=== PATIENT | female | born 1935 | race Caucasian/White ===

== ENCOUNTER 2017-06-14 14:00 | Inpatient (IN) ==
[2017-06-14] MEDS ORDERED: ONDANSETRON 4 MG/2 ML VIAL IV STA (14:49)
[2017-06-14] MEDS ORDERED: HYDROmorphone 2 MG/1 ML VIAL IV STA ×2 (14:49→18:29)
--- NOTE | 2017-06-14 14:54 | Emergency Department Note ---
Arrival - Arrival Chief Complaint: Fall Stated Complaint: FALL ED Nursing Triage Note: PATIENT TO THE ROOM VIA EMS [facility] C/O FALL [facility]. PATIENT HAS LEFT HIP PAIN WITH ROTATION AT THE FOOT. Mode of Arrival: Stretcher Limitations: No Limitations Source: Patient Time Seen by Provider: 06/14/17 14:49 - History of Present Illness HPI Narrative: This 82-year-old white female presents with a fall sustained at the local [employer] store when she was trying to go up the steps and grabbed for a rail and missed falling backwards and landing on her left hip and bouncing her head off the concrete at the same time. She denies any loss of consciousness although it was quite uncomfortable at the time when her head hit the cement; however, her only other complaint is severe left hip pain. The patient is status post prior right hip fracture and states she knows this is what this is as she has experienced it before. Of note, she is followed by Dr. Pulliam for atrial fibrillation and only takes aspirin as an anticoagulant. Other than her hip, she is currently medically stable. Onset (ago): hour(s) (Patient presents 1 hour post incident) Allergies/Adverse Reactions: Allergies Allergy/AdvReac Type Severity Reaction Status Date / Time cefoxitin [From Mefoxin] Allergy RASH Verified 06/14/17 14:20 Home Medications: Home Medications Medication Instructions Recorded Confirmed Type Aspirin [Ecotrin] 81 mg PO DAILY 12/26/15 08/26/16 History Magnesium Chloride [Slow Mag] 64 mg PO BID 12/26/15 08/26/16 History Potassium 99 mg PO DAILY 12/26/15 08/26/16 History amLODIPine [Norvasc] 5 mg PO DAILY 12/26/15 08/26/16 History Acetaminophen Tab [Tylenol Tab] 325 mg PO BID tablet 12/27/15 08/26/16 Rx Gabapentin 1 tablet PO BID #60 capsule 12/27/15 08/26/16 Rx HYDROcodone/ACETAMIN 5-325 [[place] 1 tablet PO Q4H PRN #0 tablet 12/27/15 Rx 5-325] Escitalopram [Lexapro] 5 mg PO DAILY #30 tablet 08/29/16 Rx Levofloxacin Tab [Levaquin Tab] 500 mg PO DAILY #7 tablet 08/29/16 Rx Review of System - Review of System 12 point system: reviewed and no additional remarkable complaints except as stated - Review of System Constitutional: Present: as per HPI Musculoskeletal: Present: as per HPI Neurological: Present: as per HPI Medical,Surgical,& Family Hx - Medical History Cardio: History of: Cardiac Dysrhythmia (A-Fib), Hypertension Psychological: History of: Anxiety Disorders, Depression Respiratory: History of: Pneumonia Genitourinary: History of: Recurring Urinary Tract Infections Gastrointestinal: History of: GERD Musculoskeletal: History of: Back/Neck Problems (arthritis in neck) Other: No history of: Cancer - Surgical History Cardiac Surgeries: Sugical HX of: Cardiac Catheterization HEENT Surgeries: Surgical HX of: Eye Surgery (bilateral cataract surgery) Abdominal Surgeries: Surgical HX of: Appendectomy, Cholecystectomy Reproductive Surgeries: Surgical HX of;: Hysterectomy Orthopedic Surgeries: Surgical HX of;: Total Hip Replacement, Total Knee Replacement - Family History Family History: Reports;: Family Cancer (sister), Family Heart Disease (father) , Family Hypertension (father) - Social History Smoking Status: Never smoker Frequency of Alcohol Use: None Type of Drug Use: None Exam Physical Examination: GENERAL: Well developed, well nourished elderly white female in no acute distress. HEENT: Normocephalic. Small hematoma of the occipital area. Moist mucous membranes. EOMI. PERRLA. ENT NML NECK: Supple. No adenopathy. CARDIAC: Regular. No murmurs. Heart rate 98 CHEST: Clear to auscultation. No respiratory distress. O2 sat 97% ABDOMEN: Soft. Nontender. Active bowel sounds. EXTREMITIES: Shortened and externally rotated left lower extremity normal ROM. No pedal edema. SKIN: No diaphoresis. No rash. NEURO: Alert. Oriented 3. Motor, sensory, vibratory intact no focal deficits. Vital Signs: Vital Signs Temperature 98.4 F 06/14/17 14:10 Pulse Rate 98 H 06/14/17 14:10 Respiratory Rate 18 06/14/17 14:10 Blood Pressure 140/79 06/14/17 14:10 O2 Sat by Pulse Oximetry 98 06/14/17 15:30 Course - Reevaluation(s) Reevaluation #1: Advised patient of the need for hospitalization for surgical repair of her hip. - Consultations Consultation #1: Discussed with hospitalist service who will admit the patient for further evaluation treatment. Consultation #2: Discussed patient with Dr. Dionisio Ovalle who will admit the patient for surgical repair of the left hip. Results - Impressions EKG: Atrial fibrillation at 83 with moderate intraventricular conduction delay. Nonspecific ST changes with no acute injury pattern noted. - Diagnostic Findings Procedure: Chest x-ray: image reviewed by me, report reviewed by me (Normal chest), CT: image reviewed by me, report reviewed by me (Head: Microvascular ischemia and cerebral atrophy but no acute injury, CT cervical spine: Multilevel advanced DJD changes but no evidence of acute injury), X-ray: image reviewed by me, report reviewed by me (Left hip revealed a left femoral neck fracture) Disposition Clinical Impression: Left femoral neck fracture, Atrial fibrillation, Hypertension Case discussed with: patient Disposition: Still a Patient Condition: Guarded Time of Disposition: 15:48
[2017-06-14] MEDS ORDERED: HYDROmorphone 2 MG/1 ML VIAL ONE ×2 (15:14→18:42)
[2017-06-14] MEDS ORDERED: ONDANSETRON 4 MG/2 ML VIAL ONE ×2 (15:14→18:42)
--- NOTE | 2017-06-14 15:16 | CT Report ---
CT head/brain wo con INDICATION: Headache The total DLP is 1164 mGy*cm. COMPARISON: Noncontrast CT head dated 03/16/2010 Technique: Serial axial tomographic images of the brain were obtained without the use of intravenous contrast. Dose reduction: This CT exam was performed using one or more of the following dose reduction techniques: Automated exposure control, automated adjustment of the mA and/or KV according to patient size, or use of iterative reconstruction technique. Findings: Mild generalized atrophy is noted with mild prominence of the sulci and cortical volume loss. Periventricular white matter hypodensity changes are noted bilaterally which do not demonstrate mass effect and are nonspecific but favored to represent sequela of chronic microvascular ischemia. There is no evidence of vascular territory infarct or acute intracranial hemorrhage. The alvarado-white matter differentiation is generally maintained. There is no hydrocephalus. The basilar cisterns are patent. The visualized paranasal sinuses, mastoid air cells and middle ear cavities are predominantly clear. The included orbits and their contents appear within normal limits. The visualized osseous structures and overlying soft tissues of the skull and face demonstrate no acute abnormality. IMPRESSION: No acute intracranial abnormality. Generalized mild atrophy and sequela of chronic microvascular ischemia. PROCEDURE INTERPRETED AT [facility] DEPARTMENT OF RADIOLOGY Final Report Signed by: Froilan Sotelo
--- NOTE | 2017-06-14 15:27 | XRay Report ---
XR chest 1V portable Indication: Shortness of breath Comparison: Chest x-ray 08/27/2016 Technique: Portable AP chest was performed. Findings: Heart size is normal. Pulmonary vasculature appears within normal limits. No significant abnormality of the mediastinal contours demonstrated. Lungs are clear. Bones and soft tissues demonstrate no significant abnormalities. Surgical hardware along the lateral aspect of the proximal left humerus is stable. Impression: 1. No evidence of acute pathology. 06/14/2017 3:24 PM PROCEDURE INTERPRETED AT [facility] DEPARTMENT OF RADIOLOGY Final Report Signed by: Dr. Kimo Nam
--- NOTE | 2017-06-14 15:29 | CT Report ---
Exam: CT cervical spine without contrast Date: 06/14/2017 Comparison: None Reason: Neck pain, neck trauma, fall Technique: Axial images of the cervical spine were obtained without the use of contrast. Sagittal and coronal reformatted images were also acquired. Total DLP is 264.90 mGy*cm. Findings: 2.12 mm anterolisthesis of C4 in relationship to C5. Sclerosis with osteophytes. Small intraosseous pneumocysts noted especially at C6. No acute fracture or spinal cord pathology noted. Arterial calcifications with probable chronic scarring at the lung apices. At C2-C3, osteophyte/disc complex which contacts the thecal sac. No spinal stenosis with minimal bilateral foraminal stenosis. At C3-C4, osteophyte/disc complex which contacts the thecal sac. No spinal stenosis with minimal bilateral foraminal stenosis. At C4-C5, osteophyte/disc complex which contacts the thecal sac. No spinal stenosis with minimal bilateral foraminal stenosis. At C5-C6, disc space narrowing with diffuse osteophyte/disc complex which contacts the spinal cord. Associated spinal stenosis with an AP diameter of 8.91 mm with moderately severe right and moderate left foraminal stenosis. At C6-C7, disc space narrowing with diffuse osteophyte/disc complex which compresses the thecal sac. Associated spinal stenosis with an AP diameter of 9.50 mm and minimal to moderate bilateral foraminal stenosis. At C7-T1, no disc protrusion, spinal stenosis, or foraminal stenosis. Impression: 2.12 mm anterolisthesis of C4 in relationship to C5. This finding is probably related to the multilevel DDD as above noted. No definite acute fracture identified. This CT exam was performed using one or more of the following dose reduction techniques: Automatic exposure control, adjustment of the MA and/or KV according to patient size, or use of iterative reconstruction technique. PROCEDURE INTERPRETED AT [facility] DEPARTMENT OF RADIOLOGY Final Report Signed by: Dr. Vane Randall
--- NOTE | 2017-06-14 15:35 | XRay Report ---
Exam: XR hip 2v w pelvis LT Date: 06/14/2017 2:49 PM Comparison: 05/04/2011, 04/23/2011 Indication: Pain after fall Technique:[AP pelvis with AP and lateral left hip] Findings: Status post right total hip replacement. Osteopenia. Acute displaced fracture of the left femoral neck. There is upward displacement of the femoral shaft. Impression: Status post right total hip replacement. Acute displaced left femoral neck fracture with osteopenia and degenerative changes especially in the visualized lumbar spine. PROCEDURE INTERPRETED AT [facility] DEPARTMENT OF RADIOLOGY Final Report Signed by: Dr. Vane Randall
--- NOTE | 2017-06-14 15:47 | EKG Report ---
Stationary ECG Study [facility] ER Test Date: 06/14/2017 3:45:51 PM Pat Name: CHER MARROQUIN Department: Room: Gender: F Farmworker Fruit: : 1935 Requested by: Salvador Jones Order Number: [id number] Reading MD: MARIANA KING Intervals [place] Rate: 83 P: 999 NM: 0 QRS: 15 QRSD: 109 T: 100 QT: 410 QTc: 450 Interpretive Statements ATRIAL FIBRILLATION MODERATE INTRAVENTRICULAR CONDUCTION DELAY Electronically Signed On 06-14-17 19:31:25 CDT by MARIANA KING [email or web address]
[2017-06-14 16:00] LABS: Basophils % 0.6 % (0.0-0.8); Eosinophils # 0.2 10*3/uL (0.0-0.87); Eosinophils % 2.4 % (0.00-10.9); Hematocrit 38.2 VOL% (35.7-47.0); Immature Granulocytes % 0.6 %; Immature Granulocytes Absolute 0.04 #; Lymphocytes # 1.4 10*3/uL (1.4-4.0); Lymphocytes % 20.7 % (21.3-54.2); Mean Corpuscular Hemoglobin 31 PG (27-34); Mean Platelet Volume 9.6 FL (9.6-12.0); Monocytes # 0.5 10*3/uL (0.11-0.8); Neutrophils # 4.5 10*3/uL (1.4-7.4); Neutrophils % 68.7 % (38.7-73.9); Platelet Count 184 T/CUMM (130-400); Red Cell Distribution Width 12.7 % (9.3-17.3); White Blood Count 6.6 T/CUMM (4-12)
[2017-06-14 16:07] LABS: Apearance,Urine CLOUDY (Clear); Bacteria,Urine Few /HPF (Few); Bilirubin,Urine Negative (Negative); Blood, Urine Negative (Negative); Glucose,Urine (UA) Negative (Negative); Ketones,Urine 5 mg/dL (Negative); Mucus,Urine Occasional /LPF (Occasional); Nitrite,Urine Positive (Negative); Protein,Urine Negative; RBC,Urine 6 /HPF (0-4); Squamous Epithelial Cell,Urine Occasional /HPF (0-10); Urine Color Yellow (Yellow); Urine Specific Gravity 1.012 (1.001-1.035); Urine Urobilinogen < 2.0 EU/DL (0.2-1.0); WBC,Urine 8 /HPF (0-6)
[2017-06-14 16:11] LABS: INR 1.1; PT Patient Result 11.2 SECS; Partial Thromboplastin Time 26.4 SECS (0-40)
[2017-06-14 16:23] LABS: Albumin 3.7 G/DL (3.4-5.0); Bilirubin,Total 0.5 MG/DL (0.2-1.0); Osmolality,Calculated 284.8 MOS/KG (273-304); Potassium 3.5 MMOL/L (3.5-5.1); Total Protein 6.6 G/DL (6.4-8.3)
[2017-06-14] MEDS ORDERED: ACETAMINOPHEN 325 MG TABLET PO PRN (16:40)
[2017-06-14] MEDS ORDERED: LACTULOSE 20 GM/30 ML UDCUP PO PRN (16:40)
[2017-06-14] MEDS ORDERED: MORPHINE 2 MG/1 ML SYRINGE IV PRN ×2 (16:40→18:48)
[2017-06-14] MEDS ORDERED: ONDANSETRON 4 MG/2 ML VIAL IV PRN (16:40)
--- NOTE | 2017-06-14 16:50 | Hospitalist History & Physical ---
Assessment and Plan (1) Hip fracture Status: Acute Assessment and plan: 1)traumatic hip fracture from fall due to loss of balance- No syncope. Dr Nichole to see and repair hip fracture, probably surgery tomorrow. 2)afib- rate ok, and she tells me she does not take any meds for either rate control or anticoagulation other than aspirin. continue asa. check EKG in am. get monitor if her rate increases. 3)HTN- monitor. Restart meds if it goes up- meds not reconciled at the present time. 4)osteoporosis 5)pre op eval- she has no history of ischemic heart disease or any symptoms of chest pain or shortness of breath at rest or with activity. Her afib and HTN are stable conditions. I think she is at low risk for complications from this necessary surgery to restore her independent function. She sees Dr King. Current Visit: Yes (2) Osteoporosis Status: Acute Current Visit: Yes History of Present Illness Chief complaint: hip fracture History of present illness: Ms. Pate is a 82 year old female who fell at [facility] today when she lost her balance going up to the sidewalk. She has been treated for pain and is comfortable. She hit her head but denies headache. CT scan in the ER was unremarkable. She Home Medications Medication Instructions Recorded Confirmed Type Aspirin [Ecotrin] 81 mg PO DAILY 12/26/15 08/26/16 History Magnesium Chloride [Slow Mag] 64 mg PO BID 12/26/15 08/26/16 History Potassium 99 mg PO DAILY 12/26/15 08/26/16 History amLODIPine [Norvasc] 5 mg PO DAILY 12/26/15 08/26/16 History Acetaminophen Tab [Tylenol Tab] 325 mg PO BID tablet 12/27/15 08/26/16 Rx Gabapentin 1 tablet PO BID #60 capsule 12/27/15 08/26/16 Rx HYDROcodone/ACETAMIN 5-325 [[place] 1 tablet PO Q4H PRN #0 tablet 12/27/15 Rx 5-325] Escitalopram [Lexapro] 5 mg PO DAILY #30 tablet 08/29/16 Rx Levofloxacin Tab [Levaquin Tab] 500 mg PO DAILY #7 tablet 08/29/16 Rx Allergies Allergy/AdvReac Type Severity Reaction Status Date / Time cefoxitin [From Mefoxin] Allergy RASH Verified 06/14/17 14:20 Medical,Surgical,& Family Hx - Medical History Cardio: History of: Cardiac Dysrhythmia (A-Fib), Hypertension Psychological: History of: Anxiety Disorders, Depression Respiratory: History of: Pneumonia Genitourinary: History of: Recurring Urinary Tract Infections Gastrointestinal: History of: GERD Musculoskeletal: History of: Back/Neck Problems (arthritis in neck) Other: No history of: Cancer - Surgical History Cardiac Surgeries: Sugical HX of: Cardiac Catheterization HEENT Surgeries: Surgical HX of: Eye Surgery (bilateral cataract surgery) Abdominal Surgeries: Surgical HX of: Appendectomy, Cholecystectomy Reproductive Surgeries: Surgical HX of;: Hysterectomy Orthopedic Surgeries: Surgical HX of;: Total Hip Replacement, Total Knee Replacement - Family History Family History: Reports;: Family Cancer (sister), Family Heart Disease (father) , Family Hypertension (father) - Social History Smoking Status: Never smoker Frequency of Alcohol Use: None Type of Drug Use: None Lives With:: Alone Functional capacity: independent ambulation 12 point system: reviewed and no additional remarkable complaints except as stated Exam - Constitutional Vitals: Period Temp Pulse Resp BP Sys/Myers Pulse Ox Last 24 Hr 98.4 F-98.4 F 98-98 18-18 140-140/79-79 97-98 General appearance: normal weight, no acute distress - Head Head exam: Present: normocephalic, atraumatic - Eye Eye exam: Present: EOMI. Absent: scleral icterus - Respiratory Respiratory exam: Present: clear to auscultation bilaterally - Cardiovascular Cardiovascular exam: Present: regular rate and rhythm - GI/Abdominal GI/Abdominal exam: Present: normal bowel sounds, soft. Absent: tenderness - Extremities Exam Extremities exam: Absent: edema - Neurological Exam Neurological exam: Present: alert, oriented X3 - Skin Skin exam: Present: warm, dry Results - Labs CBC & BMP: 06/14/17 15:52 06/14/17 15:52 Lab Results: I have reviewed the past 24 hour labs Quality Measures - VTE Contraindication to Mechanical VTE Prophylaxis: Trauma to Legs
--- NOTE | 2017-06-14 18:46 | Orthopedic Consult Note ---
History of Present Illness Chief complaint: Left hip fracture History of present illness: Ms. Pate is a 82 year old female who fell while entering a local [employer] store today she lost her balance injuring her left hip. She was unable to bear weight brought [facility] where radiographs confirmed a fracture femoral neck left hip display she has a past history of a right femoral neck fracture treated in a number of years ago with an endoprosthesis which she has done very well she has no other complaints other than her left hip pain Examination confirms decreased range of motion at the left hip second obvious pain is shortening and external rotation to the limb there is no pain or crepitation more distally but the femur need to febrile ankle distal neurovascular exam grossly intact there is no pain about the right lower extremity either upper extremity with gentle range of motion. X-rays confirming a displaced femoral neck fracture left hip. Impression: Femoral neck fracture left hip Plan: I discussed with she and her family present the diagnosis treatment recommendations include the need for endoprosthetic replacement of her left hip similar to what she experienced years ago we discussed the postoperative course as well and all and expectations. All questions were answered she will be admitted tonight for pain control n.p.o. status and taken operating for endoprosthesis in a.m. thank you Home Medications Medication Instructions Recorded Confirmed Type Aspirin [Ecotrin] 81 mg PO DAILY 12/26/15 06/14/17 History Magnesium Chloride [Slow Mag] 64 mg PO BID 12/26/15 06/14/17 History Potassium 99 mg PO DAILY 12/26/15 06/14/17 History amLODIPine [Norvasc] 5 mg PO DAILY 12/26/15 06/14/17 History Gabapentin 1 tablet PO BID #60 capsule 12/27/15 06/14/17 Rx Escitalopram [Lexapro] 10 mg PO DAILY 06/14/17 06/14/17 History Allergies Allergy/AdvReac Type Severity Reaction Status Date / Time cefoxitin [From Mefoxin] Allergy RASH Verified 06/14/17 14:20 Medical,Surgical,& Family Hx - Medical History Cardio: History of: Cardiac Dysrhythmia (A-Fib), Hypertension Psychological: History of: Anxiety Disorders, Depression Respiratory: History of: Pneumonia Genitourinary: History of: Recurring Urinary Tract Infections Gastrointestinal: History of: GERD Musculoskeletal: History of: Back/Neck Problems (arthritis in neck) Other: No history of: Cancer - Surgical History Cardiac Surgeries: Sugical HX of: Cardiac Catheterization HEENT Surgeries: Surgical HX of: Eye Surgery (bilateral cataract surgery) Abdominal Surgeries: Surgical HX of: Appendectomy, Cholecystectomy Reproductive Surgeries: Surgical HX of;: Hysterectomy Orthopedic Surgeries: Surgical HX of;: Total Hip Replacement, Total Knee Replacement - Family History Family History: Reports;: Family Cancer (sister), Family Heart Disease (father) , Family Hypertension (father) - Social History Smoking Status: Never smoker Frequency of Alcohol Use: None Type of Drug Use: None Exam - Constitutional Vitals: Period Temp Pulse Resp BP Sys/Myers Pulse Ox Last 24 Hr 98.4 F-98.4 F 98-98 18-18 140-140/79-79 97-98 Results - Labs CBC & BMP: 06/14/17 15:52 06/14/17 15:52
[2017-06-14] MEDS: ENOXAPARIN 40 MG/0.4 ML SYRINGE SUBCUT SCH (19:55)
[2017-06-14] MEDS: SODIUM CHLORIDE 0.45% 1,000 ML IV SCH (20:25)
[2017-06-14] MEDS: PANTOPRAZOLE 40 MG TABLET PO SCH (20:37)
[2017-06-15] MEDS: diphenhydrAMINE CAP 25 MG CAPSULE PO PRN (00:15)
[2017-06-15] MEDS: CIPROFLOXACIN 500 MG TABLET PO SCH ×3 (00:18→21:12)
--- NOTE | 2017-06-15 07:22 | EKG Report ---
Stationary ECG Study [facility] Test Date: 06/15/2017 7:22:53 AM Pat Name: CHER MARROQUIN Department: Room: 324 Gender: F Steel Cutter: JON : 1935 Requested by: Vianey Cormier Order Number: [id number] Reading MD: TABBY MERRILL Intervals [place] Rate: 80 P: 999 [place]: 0 QRS: 56 QRSD: 110 T: -3 QT: 383 QTc: 419 Interpretive Statements ATRIAL FIBRILLATION MODERATE INTRAVENTRICULAR CONDUCTION DELAY NONSPECIFIC T-WAVE ABNORMALITY Electronically Signed On 06-15-17 07:51:10 CDT by TABBY MERRILL [email or web address]
[2017-06-15 07:23] LABS: Basophils % 0.3 % (0.0-0.8); Eosinophils # 0.2 10*3/uL (0.0-0.87); Eosinophils % 2.7 % (0.00-10.9); Hematocrit 37.6 VOL% (35.7-47.0); Hemoglobin 12.4 GM/DL (12.0-16.0); Immature Granulocytes % 0.5 %; Immature Granulocytes Absolute 0.03 #; Lymphocytes % 15.4 % (21.3-54.2); Mean Corpuscular Hemoglobin 31 PG (27-34); Mean Corpuscular Volume 93.5 FL (87-102); Mean Platelet Volume 9.9 FL (9.6-12.0); Monocytes # 0.6 10*3/uL (0.11-0.8); Monocytes % 8.6 % (1.7-12.7); Neutrophils # 4.8 10*3/uL (1.4-7.4); Neutrophils % 72.5 % (38.7-73.9); Platelet Count 169 T/CUMM (130-400); Red Blood Count 4.02 MC/CUMM (3.8-5.5); Red Cell Distribution Width 12.8 % (9.3-17.3); White Blood Count 6.6 T/CUMM (4-12)
[2017-06-15 07:48] LABS: Calcium 8.7 MG/DL (8.5-10.1); Osmolality,Calculated 278.4 MOS/KG (273-304); Potassium 3.5 MMOL/L (3.5-5.1)
[2017-06-15] MEDS ORDERED: CLINDAMYCIN INJ 900 MG in PREMIX 1 EACH IV ONE ×2 (09:00→10:30)
[2017-06-15] MEDS: HYDROmorphone 2 MG/1 ML VIAL IV PRN (09:03)
--- NOTE | 2017-06-15 10:13 | Orthopedic Progress Note ---
Orthopedics - Subjective Interval history: Comfortable discussed ready to proceed Exam - Constitutional Vitals: Period Temp Pulse Resp BP Sys/Myers Pulse Ox Last 24 Hr 96.9 F-99.4 F 72-98 16-18 103-140/56-79 90-98 Results - Labs CBC & BMP: 06/15/17 06:59 06/15/17 06:59 Quality Measures - VTE Contraindication to Mechanical VTE Prophylaxis: Trauma to Legs
[2017-06-15] MEDS ORDERED: diphenhydrAMINE 50 MG/1 ML VIAL ONE (11:17)
[2017-06-15] MEDS ORDERED: diphenhydrAMINE 50 MG/1 ML VIAL IV ONE (11:23)
[2017-06-15] MEDS ORDERED: TEMAZEPAM 7.5 MG CAPSULE PO PRN (12:58)
[2017-06-15] MEDS ORDERED: MAGNESIUM HYDROXIDE SUSP 30 ML UDCUP PO PRN (12:58)
[2017-06-15] MEDS ORDERED: BISACODYL 10 MG SUPP RECTAL PRN (12:58)
[2017-06-15] MEDS ORDERED: PROMETHAZINE 25 MG/1 ML VIAL IM PRN (12:58)
[2017-06-15] MEDS ORDERED: TRANEXAMIC ACID 1,000 MG/10 ML VIAL IV ONE (13:08)
--- NOTE | 2017-06-15 13:51 | Hospitalist Progress Note ---
Assessment and Plan (1) Hip fracture Status: Acute Assessment and plan: The patient is admitted to the hospital with left hip fracture and will have surgery today. No new complications have been identified. Current Visit: Yes Hospitalist: Subjective Interval history: The patient is having surgery today. The patient has left hip fracture has been seen by Dr. Nichole. The patient does not complain of shortness of breath or angina today. Exam - Constitutional Vitals: Period Temp Pulse Resp BP Sys/Myers Pulse Ox Last 24 Hr 96.9 F-99.4 F 72-98 16-18 103-140/56-79 90-98 Exam: Constitutional System: Mild distress. No tremulousness. Head: Normocephalic, atraumatic. Ears, Nose and Throat System: No evidence of Otitis or Mastoiditis. No epistaxis or discharge Eyes System: Pupils equal, round, and reactive. Extraocular muscles intact. Neck: Supple, without adenopathy, No jugular venous distention. No thyromegaly , neck mass, or prior surgery apparent. Respiratory System: Chest clear to auscultation. Cardiovascular System: Heart with irregular rate and rhythm. No murmur. GI System: Abdomen soft, nontender. Normo active bowel sounds present. Musculoskeletal System: limbs with no pedal edema. Full distal pulses. Neurological System: No discernable sensory deficit. No aphasia Psychiatric System: Conversation is rational Results - Labs CBC & BMP: 06/15/17 06:59 06/15/17 06:59 Lab Results: I have reviewed the past 24 hour labs Quality Measures - VTE Contraindication to Mechanical VTE Prophylaxis: Trauma to Legs
[2017-06-15] MEDS ORDERED: KETAMINE 500 MG/10 ML VIAL ONE (14:15)
[2017-06-15] MEDS ORDERED: MORPHINE 10 MG/10 ML VIAL ONE (14:15)
[2017-06-15] MEDS ORDERED: ACETAMINOPHEN 1,000 MG/100 ML VIAL IV ONE (14:24)
[2017-06-15] MEDS ORDERED: MIDAZOLAM 2 MG/2 ML VIAL ONE (14:24)
[2017-06-15] MEDS ORDERED: ONDANSETRON 4 MG/2 ML VIAL ONE (14:24)
[2017-06-15] MEDS ORDERED: PROPOFOL 200 MG/20 ML VIAL IV ONE (14:24)
--- NOTE | 2017-06-15 15:08 | XRay Report ---
XR hip 1V LT Indication: Joint replacement (left hip) Comparison: Pelvis/hip x-ray dated June 14, 2017 Technique: Single frontal view of the left hip Findings: Status post total left hip arthroplasty. No evidence of immediate hardware failure. Superficial skin brooks and surgical drain/s overlie the hip. Subcutaneous and joint space air noted which is likely postoperative. IMPRESSION: Status post total left hip arthroplasty. PROCEDURE INTERPRETED AT [facility] DEPARTMENT OF RADIOLOGY Final Report Signed by: Dr Kavin Campoverde
--- NOTE | 2017-06-15 15:58 | Orthopedic Progress Note ---
Orthopedics - Subjective Interval history: Comfortable neurovascular intact discussed up in a.m. Exam - Constitutional Vitals: Period Temp Pulse Resp BP Sys/Myers Pulse Ox Last 24 Hr 96.9 F-100.6 F 72-107 15-20 100-140/50-89 90-98 Results - Labs CBC & BMP: 06/15/17 06:59 06/15/17 06:59 Quality Measures - VTE Contraindication to Mechanical VTE Prophylaxis: Trauma to Legs
[2017-06-15] MEDS: CLINDAMYCIN INJ 900 MG in PREMIX 1 EACH IV SCH (17:56)
[2017-06-15] MEDS: PANTOPRAZOLE 40 MG TABLET PO SCH (17:57)
[2017-06-15] MEDS: ASPIRIN EC 81 MG TABLET PO SCH (17:57)
[2017-06-15] MEDS: ENOXAPARIN 40 MG/0.4 ML SYRINGE SUBCUT SCH (17:57)
[2017-06-15] MEDS: SODIUM CHLORIDE 0.45% 1,000 ML IV SCH ×2 (20:26→20:27)
[2017-06-15] MEDS: LACTATED RINGERS 1,000 ML IV SCH ×2 (20:26→21:52)
[2017-06-15] MEDS: DOCUSATE SODIUM 100 MG CAPSULE PO SCH (21:12)
--- NOTE | 2017-06-15 22:42 | Operative Note ---
DATE: 06/15/2017 PREOPERATIVE DIAGNOSIS: FEMORAL NECK FRACTURE, LEFT HIP. POSTOPERATIVE DIAGNOSIS: FEMORAL NECK FRACTURE, LEFT HIP. OPERATIVE PROCEDURE: Bipolar, left hip. SURGEON: Arron Nichole Jr., MD. ANESTHESIA: Spinal. INDICATIONS: The patient is an 82-year-old white female who fell yesterday afternoon sustaining a di splaced femoral neck fracture to her left hip. This has been discussed with she and her family preop eratively diagnosis, treatment, recommendations including the need for endo-prosthetic replacement. OPERATIVE PROCEDURE: The patient was taken to the operating room and under spinal anesthetic, positi oned in the right lateral decubitus position. Left hip and lower extremity prepped and draped in the usual sterile manner. She received Ancef preoperatively. Curvilinear incision was made to posterol ateral aspect of the left hip. Sharp dissection was carried down through skin and subcutaneous tissu e. The IT band was split and the hip was then internally rotated, and the short rotators and capsule were dissected off the back of the proximal femur. The capsule was tacked for later repair. Femora l neck cut was fashioned with a saw, the head removed and sized to 47. Sequential broachings of the canal ultimately slacking size 3 standard stem for the safer cementation. A +5 head was also selecte d. The trial components were removed. The proximal femur was prepared for cementation and the femor al stem cemented in place. After the cement hardened, the +5 and bipolar head were secured to the ta per and hip relocated. It provided good stability and equalization of limb length. Hemostasis was v erified. The wound was then irrigated, two 1/8-inch Hemovac drains, and the capsule closed with #1 V icryl. The IT band and gluteal layer also with #1 Vicryl, 2-0 Vicryl for subcutaneous layer, and sta ples for skin. Sterile dressings were applied. She was rolled supine, abduction pillow placed, and taken to recovery room in stable condition.
[2017-06-16] MEDS: CLINDAMYCIN INJ 900 MG in PREMIX 1 EACH IV SCH (02:42)
[2017-06-16] MEDS: LACTATED RINGERS 1,000 ML IV SCH (04:28)
[2017-06-16] MEDS: HYDROmorphone 2 MG/1 ML VIAL IV PRN (04:38)
[2017-06-16 05:32] LABS: Basophils % 0.2 % (0.0-0.8); Eosinophils # 0.2 10*3/uL (0.0-0.87); Eosinophils % 3.9 % (0.00-10.9); Hematocrit 33.2 VOL% (35.7-47.0); Hemoglobin 11.4 GM/DL (12.0-16.0); Immature Granulocytes % 0.4 %; Immature Granulocytes Absolute 0.02 #; Lymphocytes # 0.8 10*3/uL (1.4-4.0); Lymphocytes % 14.5 % (21.3-54.2); Mean Corpuscular HGB Conc 34.3 GM/DL (32-36); Mean Corpuscular Hemoglobin 32 PG (27-34); Mean Corpuscular Volume 91.7 FL (87-102); Mean Platelet Volume 10.3 FL (9.6-12.0); Monocytes # 0.6 10*3/uL (0.11-0.8); Monocytes % 11.7 % (1.7-12.7); Neutrophils # 3.7 10*3/uL (1.4-7.4); Neutrophils % 69.3 % (38.7-73.9); Platelet Count 114 T/CUMM (130-400); Red Blood Count 3.62 MC/CUMM (3.8-5.5); Red Cell Distribution Width 12.6 % (9.3-17.3); White Blood Count 5.4 T/CUMM (4-12)
[2017-06-16 06:00] LABS: Calcium 7.9 MG/DL (8.5-10.1); Osmolality,Calculated 279.4 MOS/KG (273-304); Potassium 3.4 MMOL/L (3.5-5.1)
--- NOTE | 2017-06-16 08:30 | Orthopedic Progress Note ---
Orthopedics - Subjective Interval history: Hemoglobin 11 ready to start PT neurovascular intact discussed will need rehab placement. Stop IV fluids catheters out. Exam - Constitutional Vitals: Period Temp Pulse Resp BP Sys/Myers Pulse Ox Last 24 Hr 98.2 F-100.6 F 87-107 15-20 92-120/50-89 87-99 Results - Labs CBC & BMP: 06/16/17 04:54 06/16/17 04:54 Quality Measures - VTE Contraindication to Mechanical VTE Prophylaxis: Trauma to Legs
--- NOTE | 2017-06-16 09:17 | Hospitalist Progress Note ---
Assessment and Plan (1) Hip fracture Status: Acute Assessment and plan: The patient is admitted to the hospital with left hip fracture and had surgery yesterday. No new complications have been identified. Current Visit: Yes Hospitalist: Subjective Interval history: The patient is awake, optimistic, and talkative. She has some pain in the hip but hopes to make progress with physical therapy today. Dr. Nichole wants her to go to [facility] at the time of discharge. Exam - Constitutional Vitals: Period Temp Pulse Resp BP Sys/Myers Pulse Ox Last 24 Hr 98.2 F-100.6 F 87-107 15-20 92-120/50-89 87-99 Exam: Constitutional System: Mild distress. No tremulousness. Head: Normocephalic, atraumatic. Ears, Nose and Throat System: No evidence of Otitis or Mastoiditis. No epistaxis or discharge Eyes System: Pupils equal, round, and reactive. Extraocular muscles intact. Neck: Supple, without adenopathy, No jugular venous distention. No thyromegaly , neck mass, or prior surgery apparent. Respiratory System: Chest clear to auscultation. Cardiovascular System: Heart with irregular rate and rhythm. No murmur. GI System: Abdomen soft, nontender. Normo active bowel sounds present. Musculoskeletal System: limbs with no pedal edema. Full distal pulses. Neurological System: No discernable sensory deficit. No aphasia Psychiatric System: Conversation is rational Results - Labs CBC & BMP: 06/16/17 04:54 06/16/17 04:54 Lab Results: I have reviewed the past 24 hour labs Quality Measures - VTE Contraindication to Mechanical VTE Prophylaxis: Trauma to Legs
[2017-06-16] MEDS: SODIUM CHLORIDE 0.45% 1,000 ML IV SCH (09:39)
[2017-06-16] MEDS: PANTOPRAZOLE 40 MG TABLET PO SCH (09:46)
[2017-06-16] MEDS: DOCUSATE SODIUM 100 MG CAPSULE PO SCH ×2 (09:46→20:22)
[2017-06-16] MEDS: ASPIRIN EC 81 MG TABLET PO SCH (09:46)
[2017-06-16] MEDS: CIPROFLOXACIN 500 MG TABLET PO SCH ×2 (09:46→20:22)
--- NOTE | 2017-06-16 14:20 | Anesthesia Post-Op ---
Anesthesia Post OP - Post Ansesthetic Evaluation Patient seen in post op: Yes Resp: within normal limits CV: within normal limits Mental: within normal limits Temp: within normal limits [id number]: within normal limits Nausea and Vomiting: within normal limits Pain: within normal limits
[2017-06-16] MEDS: ENOXAPARIN 40 MG/0.4 ML SYRINGE SUBCUT SCH (18:26)
[2017-06-16] MEDS: diphenhydrAMINE CAP 25 MG CAPSULE PO PRN (22:53)
[2017-06-17 05:42] LABS: Basophils % 0.4 % (0.0-0.8); Eosinophils # 0.3 10*3/uL (0.0-0.87); Eosinophils % 3.1 % (0.00-10.9); Hematocrit 33.8 VOL% (35.7-47.0); Hemoglobin 11.6 GM/DL (12.0-16.0); Immature Granulocytes % 0.4 %; Immature Granulocytes Absolute 0.03 #; Lymphocytes # 1.2 10*3/uL (1.4-4.0); Lymphocytes % 14.8 % (21.3-54.2); Mean Corpuscular HGB Conc 34.3 GM/DL (32-36); Mean Corpuscular Hemoglobin 32 PG (27-34); Mean Corpuscular Volume 92.1 FL (87-102); Mean Platelet Volume 10.3 FL (9.6-12.0); Monocytes # 0.9 10*3/uL (0.11-0.8); Monocytes % 11.5 % (1.7-12.7); Neutrophils # 5.6 10*3/uL (1.4-7.4); Neutrophils % 69.8 % (38.7-73.9); Platelet Count 124 T/CUMM (130-400); Red Blood Count 3.67 MC/CUMM (3.8-5.5); Red Cell Distribution Width 12.7 % (9.3-17.3)
[2017-06-17 06:20] LABS: Eosinophils 1 % (0-10); Hypochromasia Slight; Lymphocytes 20 % (20-55); Platelet Estimate Decreased; Segmented Neutrophils 74 % (50-85); Total Cells Counted 100
[2017-06-17] MEDS: CIPROFLOXACIN 500 MG TABLET PO SCH ×2 (09:17→20:38)
[2017-06-17] MEDS: DOCUSATE SODIUM 100 MG CAPSULE PO SCH ×2 (09:17→20:38)
[2017-06-17] MEDS: PANTOPRAZOLE 40 MG TABLET PO SCH (09:18)
[2017-06-17] MEDS: ASPIRIN EC 81 MG TABLET PO SCH (09:18)
--- NOTE | 2017-06-17 09:58 | Orthopedic Progress Note ---
Orthopedics - Subjective Interval history: Comfortable mild serous drainage on dressing H&H stable instructed likely to rehab tomorrow Exam - Constitutional Vitals: Period Temp Pulse Resp BP Sys/Myers Pulse Ox Last 24 Hr 97.3 F-100.3 F 85-102 16-20 123-145/63-73 90-100 Results - Labs CBC & BMP: 06/17/17 04:16 06/16/17 04:54 Quality Measures - VTE Contraindication to Mechanical VTE Prophylaxis: Trauma to Legs
--- NOTE | 2017-06-17 11:18 | Pathology Report from [facility] ---
[facility] ACCESSION # : [id number] PATIENT NAME : Cher Marroquin ORDERING DR : CAROLINA CALDERON JR, MD CLINICAL HX: Displaced femoral neck fracture left hip POST-OP DX: Same SPECIMEN INFO: Left hip bone and tissue GROSS DESCRIPTION: The specimen is received in formalin labeled with the patients name and consists of a fractured femoral head which measures 4.5 x 4.5 x 3.5 cm. The articular surface is smooth and skelton with no subchondral eburnation seen. Received separately in the container are multiple fragments of hemorrhagic bone and soft tissue measuring 5.5 x 4.0 cm in aggregate. The area of fracture is shaggy and hemorrhagic with no softening appreciated. Rn Dermatology tissue submitted in one cassette following decalcification. DIAGNOSIS FOR CHER MARROQUIN: LEFT HIP BONE & TISSUE, REPLACEMENT: Acute hemorrhage c/w fracture. COLLECTED DATE: 06/15/2017 [facility] REPORT DATE: 06/17/2017 ELECTRONICALLY SIGNED BY: Mil De La Fuente M.D. 06/17/2017 - 10:13:08 ALVAREZ
--- NOTE | 2017-06-17 14:07 | Hospitalist Progress Note ---
Assessment and Plan (1) Hip fracture Status: Acute Assessment and plan: The patient is admitted to the hospital with left hip fracture and had surgery Wednesday. No new complications have been identified. The patient will be ready for transfer to rehab tomorrow. Current Visit: Yes Hospitalist: Subjective Interval history: The patient is admitted to the hospital with left hip fracture. She has had an uneventful postoperative recovery and there are no new symptoms today. Exam - Constitutional Vitals: Period Temp Pulse Resp BP Sys/Myers Pulse Ox Last 24 Hr 97.3 F-98.9 F 85-109 16-20 106-128/63-73 90-98 Exam: Constitutional System: Mild distress. No tremulousness. Head: Normocephalic, atraumatic. Ears, Nose and Throat System: No evidence of Otitis or Mastoiditis. No epistaxis or discharge Eyes System: Pupils equal, round, and reactive. Extraocular muscles intact. Neck: Supple, without adenopathy, No jugular venous distention. No thyromegaly , neck mass, or prior surgery apparent. Respiratory System: Chest clear to auscultation. Cardiovascular System: Heart with irregular rate and rhythm. No murmur. GI System: Abdomen soft, nontender. Normo active bowel sounds present. Musculoskeletal System: limbs with no pedal edema. Full distal pulses. Neurological System: No discernable sensory deficit. No aphasia Psychiatric System: Conversation is rational Results - Labs CBC & BMP: 06/17/17 04:16 06/16/17 04:54 Lab Results: I have reviewed the past 24 hour labs Quality Measures - VTE Contraindication to Mechanical VTE Prophylaxis: Trauma to Legs Specialty Discharge - Follow Up or Referrals Follow up with: Arron Nichole Jr., MD [Physician] - 07/20/17 8:00 am
[2017-06-17] MEDS: ENOXAPARIN 40 MG/0.4 ML SYRINGE SUBCUT SCH (17:36)
[2017-06-18 05:42] LABS: Calcium 8.2 MG/DL (8.5-10.1); Osmolality,Calculated 279.3 MOS/KG (273-304); Potassium 3.3 MMOL/L (3.5-5.1)
--- NOTE | 2017-06-18 07:48 | Orthopedic Progress Note ---
Orthopedics - Subjective Interval history: No problems tolerating PT well ready for discharge Exam - Constitutional Vitals: Period Temp Pulse Resp BP Sys/Myers Pulse Ox Last 24 Hr 97.7 F-100.8 F 64-109 16-18 106-143/66-93 92-98 Results - Labs CBC & BMP: 06/17/17 04:16 06/18/17 04:20 Quality Measures - VTE Contraindication to Mechanical VTE Prophylaxis: Trauma to Legs Specialty Discharge - Follow Up or Referrals Follow up with: Arron Nichole Jr., MD [Physician] - 07/20/17 8:00 am
--- NOTE | 2017-06-18 08:38 | Discharge Summary ---
Hospital Course - Hospital Course Hospital Course: The patient was admitted to the hospital with left hip fracture. The patient had appropriate open reduction internal fixation of the left hip by Dr. Nichole. The patient had an uneventful postoperative recovery and is ready for transfer to [facility] rehab. On the date of discharge, chest clear, heart has regular rate and rhythm, abdomen soft. The patient was screened for tobacco use and was found to be a never smoker. The patient was given 4 minutes encouragement to avoid smoking in the future. The patient is her own medical decision maker and wishes to be full code. The patient's home medicines were reconciled at the time of admission and again upon discharge. - Time spent with patient Time with patient DS: Greater than 30 minutes Diagnosis - Discharge Diagnosis (1) Hip fracture Status: Acute Specialty Discharge - Follow Up or Referrals Follow up with: Arron Nichole Jr., MD [Physician] - 07/20/17 8:00 am Discharge Plan - Discharge Data Disposition: Disch/er- Rehab Fac Condition at Discharge: Stable Discharge Diet: advance to your usual diet Activity: as per physical therapy - Discharge Medications New Bisacodyl Supp [Dulcolax Supp] 10 mg RECTAL DAILY PRN supp PRN Reason: Constipation Enoxaparin [Lovenox] 40 mg SUBCUT Q24H syringe HYDROcodone/ACETAMIN 7.5-325 [[place] 7.5-325] 1 tablet PO Q4H PRN #30 tablet PRN Reason: Pain Moderate (4-7) Lactulose Liquid [Chronulac] 20 gm PO Q4H PRN PRN Reason: Constipation Magnesium Hydroxide Susp [Milk of Magnesia] 30 ml PO Q6H PRN PRN Reason: Constipation Acetaminophen Tab [Tylenol Tab] 650 mg PO Q4H PRN tablet PRN Reason: Fever, Headache, Mild Pain Ciprofloxacin Tab [Cipro Tab] 500 mg PO BID #10 tablet Ondansetron Inj [Zofran Inj] 4 mg IV Q4H PRN vial PRN Reason: Nausea Continue Potassium 99 mg PO DAILY Magnesium Chloride [Slow Mag] 64 mg PO BID amLODIPine [Norvasc] 5 mg PO DAILY Aspirin [Ecotrin] 81 mg PO DAILY Gabapentin 1 tablet PO BID #60 capsule Escitalopram [Lexapro] 10 mg PO DAILY - Follow Up or Referral Follow Up: Arron Nichole Jr., MD [Physician] - 07/20/17 8:00 am - Forms/Instructions Exam - Constitutional Vitals: Period Temp Pulse Resp BP Sys/Myers Pulse Ox Last 24 Hr 97.7 F-100.8 F 64-109 16-18 106-160/66-93 92-98 Discharge Results Labs on day of discharge: Labs from last 24 hours 06/18/17 04:20 Sodium 141 Potassium 3.3 L Chloride 104 Carbon Dioxide 31 Anion Gap 9.3 BUN 10 Creatinine 0.40 L GFR Calculation 91 BUN/Creatinine Ratio 25.00 H Glucose 102 Calculated Osmolality 279.3 Calcium 8.2 L Magnesium 2.0 DS: Provider Date of admission: 06/14/17 16:40 Primary care physician: Dashawn Valdez MD Attending physician on admission: Vianey Cormier MD Consults: 06/14/17 16:40 Consult to Physician [CONS] Routine Comment: Consulting Provider: Arron Nichole Jr. Consulting Provider Notified: Yes When should Consulting Provider be notified: Now Person Notified: nena hammonds Date Notified: 06/15/17 Time Notified: 08:15 06/14/17 16:42 Consult to Case Mgmt/Social Srvs [CONS] Routine Reason for Case Mgmt/Social Srvs: Discharge Planning 06/15/17 12:58 Consult to Case Mgmt/Social Srvs [CONS] Routine Reason for Case Mgmt/Social Srvs: Rehab Home Health Equipment Consult Comment: Bedside Commode, CPM, Walker Consult to Occupational Therapy [CONS] Routine Reason for Occupational Therapy: Evaluate and Treat Consult Comment: ADL's Consult to Physical Therapy [CONS] Routine Reason for Physical Therapy: Evaluate and Treat Gait Training Consult Comment: WBAT with hip precautions Discharging clinician: Cory Ochoa MD
[2017-06-18] MEDS: PANTOPRAZOLE 40 MG TABLET PO SCH (09:22)
[2017-06-18] MEDS: ASPIRIN EC 81 MG TABLET PO SCH (09:23)
[2017-06-18] MEDS: CIPROFLOXACIN 500 MG TABLET PO SCH (09:25)
[2017-06-18] MEDS: DOCUSATE SODIUM 100 MG CAPSULE PO SCH (09:26)
[2017-06-18 11:17] VITALS: BP 141/72
== END 2017-06-18 11:15 | DRG 470 ==
LOC: EDUNIT# → EDBD → N.ED 14:00 → SUATTDRO 16:40 → N.EDINP 16:40 → N.3E 19:05
PROVIDERS: ADMIT Internal Medicine; ATTEND Internal Medicine

== ENCOUNTER 2021-11-05 09:38 | Inpatient (IN) ==
[2021-11-05] MEDS ORDERED: ONDANSETRON 4 MG/2 ML VIAL IV STA (10:22)
[2021-11-05] MEDS ORDERED: NITROGLYCERIN 2% OINT 1 INCH/GM PACK TOP STA (10:22)
[2021-11-05] MEDS ORDERED: ASPIRIN 325 MG TABLET PO STA (10:22)
[2021-11-05] MEDS ORDERED: MORPHINE 2 MG/1 ML SYRINGE IV STA (10:22)
[2021-11-05 10:56] LABS: Basophils % 0.4 % (0.0-0.8); Eosinophils # 0.2 10*3/uL (0.0-0.87); Eosinophils % 2.4 % (0.00-10.9); Hematocrit 39.4 VOL% (35.7-47.0); Hemoglobin 12.7 GM/DL (12.0-16.0); Immature Granulocytes % 0.4 %; Immature Granulocytes Absolute 0.03 #; Lymphocytes # 1.2 10*3/uL (1.4-4.0); Lymphocytes % 17.4 % (21.3-54.2); Mean Corpuscular HGB Conc 32.2 GM/DL (32-36); Mean Corpuscular Volume 92.9 FL (87-102); Mean Platelet Volume 9.4 FL (9.6-12.0); Monocytes % 6.5 % (1.7-12.7); Neutrophils % 72.9 % (38.7-73.9); Platelet Count 202 T/CUMM (130-400); Red Blood Count 4.24 MC/CUMM (3.8-5.5); Red Cell Distribution Width 12.8 % (9.3-17.3); White Blood Count 6.9 T/CUMM (4-12)
[2021-11-05 11:15] LABS: INR 1.1; PT Patient Result 12.4 SECS (10.5-12.0); Partial Thromboplastin Time 20.6 SECS (23.8-32.1)
[2021-11-05 11:26] LABS: Albumin 3.2 G/DL (3.4-5.0); Bilirubin,Total 0.5 MG/DL (0.20-1.00); Calcium 9.2 MG/DL (8.5-10.1); Osmolality,Calculated 277.5 MOS/KG (273-304); Potassium 3.1 MMOL/L (3.5-5.1); Total Protein 6.6 G/DL (6.4-8.2)
[2021-11-05] MEDS ORDERED: fentaNYL 100 MCG/2 ML VIAL IV STA (12:14)
[2021-11-05] MEDS ORDERED: POTASSIUM CHLORIDE 20 MEQ TABLET PO STA (14:22)
[2021-11-05] MEDS ORDERED: GLUCAGON 1 MG VIAL IM PRN (14:40)
[2021-11-05] MEDS ORDERED: DEXTROSE 50% 25 GM/50 ML SYRINGE IV PRN (14:40)
[2021-11-05] MEDS: SODIUM CHLORIDE 0.9% 1,000 ML IV SCH (15:57)
[2021-11-05] MEDS: ACETAMINOPHEN 325 MG TABLET PO PRN (20:34)
[2021-11-05] MEDS ORDERED: ALUMINUM/MAGNES/SIMETH MAX STR 30 ML UDCUP PO PRN (22:36)
[2021-11-05] MEDS: ONDANSETRON 4 MG/2 ML VIAL IV PRN (22:49)
[2021-11-06] MEDS: SODIUM CHLORIDE 0.9% 1,000 ML IV SCH ×3 (03:50→22:35)
[2021-11-06 06:00] LABS: Basophils % 0.4 % (0.0-0.8); Eosinophils # 0.2 10*3/uL (0.0-0.87); Eosinophils % 2.4 % (0.00-10.9); Hematocrit 35.9 VOL% (35.7-47.0); Hemoglobin 11.6 GM/DL (12.0-16.0); Immature Granulocytes % 0.4 %; Immature Granulocytes Absolute 0.03 #; Lymphocytes # 1.6 10*3/uL (1.4-4.0); Lymphocytes % 21.3 % (21.3-54.2); Mean Corpuscular HGB Conc 32.3 GM/DL (32-36); Mean Corpuscular Volume 92.5 FL (87-102); Mean Platelet Volume 9.5 FL (9.6-12.0); Monocytes % 9.2 % (1.7-12.7); Neutrophils % 66.3 % (38.7-73.9); Platelet Count 243 T/CUMM (130-400); Red Blood Count 3.88 MC/CUMM (3.8-5.5); Red Cell Distribution Width 12.9 % (9.3-17.3); White Blood Count 7.5 T/CUMM (4-12)
[2021-11-06 06:14] LABS: Calcium 8.6 MG/DL (8.5-10.1); Osmolality,Calculated 278.4 MOS/KG (273-304); Potassium 3.2 MMOL/L (3.5-5.1)
[2021-11-06] MEDS ORDERED: POTASSIUM CHLORIDE 20 MEQ TABLET PO ONE (07:45)
[2021-11-06] MEDS ORDERED: PANTOPRAZOLE 40 MG VIAL IV SCH (09:30)
[2021-11-06] MEDS: METOPROLOL SUCCINATE XL 25 MG TABLET PO SCH (11:33)
[2021-11-06] MEDS: CHOLECALCIFEROL 1,000 UNIT TABLET PO SCH (11:34)
[2021-11-06] MEDS: ASPIRIN EC 81 MG TABLET PO SCH (11:34)
[2021-11-06] MEDS: POTASSIUM CHLORIDE 10 MEQ TABLET PO SCH ×2 (11:37→21:27)
[2021-11-06] MEDS ORDERED: CIPROFLOXACIN INJ 400 MG/200 ML PREMIX IV SCH (15:00)
[2021-11-06] MEDS: metroNIDAZOLE INJ 500 MG/100 ML PREMIX IV SCH ×2 (17:18→22:38)
[2021-11-06 19:52] LABS: Bacteria,Urine Many /HPF (Few); Bilirubin,Urine Negative (Negative); Blood, Urine Small mg/dL (Negative); Glucose,Urine (UA) Negative (Negative); Ketones,Urine 5 mg/dL (Negative); Mucus,Urine Occasional /LPF (Occasional); Nitrite,Urine Negative (Negative); Protein,Urine Negative; RBC,Urine 2 /HPF (0-4); Squamous Epithelial Cell,Urine Occasional /HPF (0-10); Urine Appearance CLOUDY (Clear); Urine Color Amber (Yellow); Urine Specific Gravity 1.016 (1.001-1.035); Urine Urobilinogen < 2.0 EU/DL (<2.0)
[2021-11-06] MEDS ORDERED: diphenhydrAMINE CAP 50 MG CAPSULE PO PRN (20:17)
[2021-11-06] MEDS: VENLAFAXINE 37.5 MG TABLET PO SCH (21:27)
[2021-11-06] MEDS: NITROFURANTOIN MACRO/MONO 100 MG CAPSULE PO SCH (21:27)
[2021-11-06] MEDS: GABAPENTIN 300 MG CAPSULE PO SCH (21:27)
[2021-11-06] MEDS: PANTOPRAZOLE 40 MG VIAL IV SCH (21:52)
[2021-11-06] MEDS: ONDANSETRON 4 MG/2 ML VIAL IV PRN (22:38)
[2021-11-07 05:14] LABS: Basophils % 0.3 % (0.0-0.8); Eosinophils # 0.2 10*3/uL (0.0-0.87); Eosinophils % 2.6 % (0.00-10.9); Hematocrit 37.8 VOL% (35.7-47.0); Immature Granulocytes % 0.3 %; Immature Granulocytes Absolute 0.03 #; Lymphocytes # 1.8 10*3/uL (1.4-4.0); Lymphocytes % 20.4 % (21.3-54.2); Mean Corpuscular HGB Conc 31.7 GM/DL (32-36); Mean Platelet Volume 9.3 FL (9.6-12.0); Monocytes % 6.4 % (1.7-12.7); Platelet Count 243 T/CUMM (130-400); Red Blood Count 3.98 MC/CUMM (3.8-5.5); Red Cell Distribution Width 12.9 % (9.3-17.3); White Blood Count 8.6 T/CUMM (4-12)
[2021-11-07 05:31] LABS: Calcium 8.7 MG/DL (8.5-10.1); Potassium 3.6 MMOL/L (3.5-5.1)
[2021-11-07] MEDS: metroNIDAZOLE INJ 500 MG/100 ML PREMIX IV SCH ×2 (06:02→14:33)
[2021-11-07] MEDS: METOPROLOL SUCCINATE XL 25 MG TABLET PO SCH (08:52)
[2021-11-07] MEDS: ASPIRIN EC 81 MG TABLET PO SCH (08:52)
[2021-11-07] MEDS: CHOLECALCIFEROL 1,000 UNIT TABLET PO SCH (08:53)
[2021-11-07] MEDS: POTASSIUM CHLORIDE 10 MEQ TABLET PO SCH ×2 (08:53→21:22)
[2021-11-07] MEDS: PANTOPRAZOLE 40 MG VIAL IV SCH ×2 (08:57→21:25)
[2021-11-07] MEDS: SODIUM CHLORIDE 0.9% 1,000 ML IV SCH ×2 (12:50→20:20)
[2021-11-07] MEDS: CHOLESTYRAMINE/ASPARTAME 4 GM PACK PO SCH (21:20)
[2021-11-07] MEDS: VENLAFAXINE 37.5 MG TABLET PO SCH (21:21)
[2021-11-07] MEDS: NITROFURANTOIN MACRO/MONO 100 MG CAPSULE PO SCH (21:21)
[2021-11-07] MEDS: GABAPENTIN 300 MG CAPSULE PO SCH (21:22)
[2021-11-08] MEDS: metroNIDAZOLE INJ 500 MG/100 ML PREMIX IV SCH ×4 (00:06→22:00)
[2021-11-08] MEDS: CHOLECALCIFEROL 1,000 UNIT TABLET PO SCH (09:08)
[2021-11-08] MEDS: POTASSIUM CHLORIDE 10 MEQ TABLET PO SCH ×2 (09:08→21:29)
[2021-11-08] MEDS: METOPROLOL SUCCINATE XL 25 MG TABLET PO SCH (09:09)
[2021-11-08] MEDS: ASPIRIN EC 81 MG TABLET PO SCH (09:09)
[2021-11-08] MEDS: PANTOPRAZOLE 40 MG VIAL IV SCH ×2 (09:09→21:34)
[2021-11-08] MEDS: SODIUM CHLORIDE 0.9% 1,000 ML IV SCH ×2 (09:10→23:55)
[2021-11-08] MEDS: CHOLESTYRAMINE/ASPARTAME 4 GM PACK PO SCH ×2 (12:23→21:55)
[2021-11-08] MEDS: ACETAMINOPHEN 325 MG TABLET PO PRN (16:12)
[2021-11-08] MEDS: GABAPENTIN 300 MG CAPSULE PO SCH (21:28)
[2021-11-08] MEDS: VENLAFAXINE 37.5 MG TABLET PO SCH (21:28)
[2021-11-08] MEDS: NITROFURANTOIN MACRO/MONO 100 MG CAPSULE PO SCH (21:29)
[2021-11-08] MEDS: ONDANSETRON 4 MG/2 ML VIAL IV PRN (22:08)
[2021-11-08] MEDS ORDERED: TEMAZEPAM 7.5 MG CAPSULE PO ONE (22:24)
[2021-11-09 05:41] LABS: Calcium 8.3 MG/DL (8.5-10.1); Osmolality,Calculated 277.4 MOS/KG (273-304); Potassium 3.9 MMOL/L (3.5-5.1)
[2021-11-09] MEDS: metroNIDAZOLE INJ 500 MG/100 ML PREMIX IV SCH ×2 (06:00→16:00)
[2021-11-09] MEDS: MAGNESIUM CHLORIDE 64 MG TABLET PO SCH (09:37)
[2021-11-09] MEDS: POTASSIUM CHLORIDE 10 MEQ TABLET PO SCH ×2 (09:38→21:55)
[2021-11-09] MEDS: CHOLECALCIFEROL 1,000 UNIT TABLET PO SCH (09:38)
[2021-11-09] MEDS: ASPIRIN EC 81 MG TABLET PO SCH (09:38)
[2021-11-09] MEDS: METOPROLOL SUCCINATE XL 25 MG TABLET PO SCH (09:38)
[2021-11-09] MEDS: PANTOPRAZOLE 40 MG VIAL IV SCH ×2 (09:39→22:01)
[2021-11-09] MEDS: CHOLESTYRAMINE/ASPARTAME 4 GM PACK PO SCH ×2 (10:56→21:55)
[2021-11-09] MEDS ORDERED: MELATONIN 3 MG TABLET PO PRN (16:41)
[2021-11-09] MEDS ORDERED: ERTAPENEM 500 MG in SODIUM CHLORIDE 0.9% 100 ML IV SCH (18:00)
[2021-11-09] MEDS: SODIUM CHLORIDE 0.9% 1,000 ML IV SCH (18:19)
[2021-11-09] MEDS: CYPROHEPTADINE 4 MG TABLET PO SCH (21:54)
[2021-11-09] MEDS: VENLAFAXINE 37.5 MG TABLET PO SCH (21:54)
[2021-11-09] MEDS: GABAPENTIN 300 MG CAPSULE PO SCH (21:55)
[2021-11-09] MEDS: NITROFURANTOIN MACRO/MONO 100 MG CAPSULE PO SCH (21:55)
[2021-11-10 05:27] LABS: Basophils % 0.2 % (0.0-0.8); Eosinophils # 0.2 10*3/uL (0.0-0.87); Eosinophils % 2.8 % (0.00-10.9); Hematocrit 33.4 VOL% (35.7-47.0); Hemoglobin 10.6 GM/DL (12.0-16.0); Immature Granulocytes % 0.4 %; Immature Granulocytes Absolute 0.03 #; Lymphocytes # 1.6 10*3/uL (1.4-4.0); Lymphocytes % 19.4 % (21.3-54.2); Mean Corpuscular HGB Conc 31.7 GM/DL (32-36); Mean Corpuscular Volume 94.4 FL (87-102); Monocytes % 8.9 % (1.7-12.7); Neutrophils % 68.3 % (38.7-73.9); Platelet Count 211 T/CUMM (130-400); Red Blood Count 3.54 MC/CUMM (3.8-5.5); Red Cell Distribution Width 13.3 % (9.3-17.3); White Blood Count 8.5 T/CUMM (4-12)
[2021-11-10 05:46] LABS: Calcium 8.6 MG/DL (8.5-10.1); Osmolality,Calculated 278.3 MOS/KG (273-304); Potassium 3.8 MMOL/L (3.5-5.1)
[2021-11-10] MEDS ORDERED: MAGNESIUM SULF RIDER 2 GM/50 ML PREMIX IV ONE (08:37)
[2021-11-10] MEDS: CHOLESTYRAMINE/ASPARTAME 4 GM PACK PO SCH (09:46)
[2021-11-10] MEDS: ASPIRIN EC 81 MG TABLET PO SCH (09:48)
[2021-11-10] MEDS: CYPROHEPTADINE 4 MG TABLET PO SCH (09:49)
[2021-11-10] MEDS: METOPROLOL SUCCINATE XL 25 MG TABLET PO SCH (09:49)
[2021-11-10] MEDS: MAGNESIUM CHLORIDE 64 MG TABLET PO SCH (09:49)
[2021-11-10] MEDS: POTASSIUM CHLORIDE 10 MEQ TABLET PO SCH (09:49)
[2021-11-10] MEDS: CHOLECALCIFEROL 1,000 UNIT TABLET PO SCH (09:49)
[2021-11-10] MEDS: PANTOPRAZOLE 40 MG VIAL IV SCH (09:50)
[2021-11-10] MEDS ORDERED: INFLUENZA VIRUS VACCINE 0.5 ML SYRINGE IM ONE (13:13)
[2021-11-10 13:34] VITALS: BP 126/89
== END 2021-11-10 15:45 | disposition swing bed (61) | DRG 392 ==
LOC: EDUNIT# → EDBD → SUATTDRO → N.TELEN 09:38 → N.ED 09:38 → N.TELEN 18:29 → SUATTDRO 11-06 08:58
PROVIDERS: ADMIT Internal Medicine; ATTEND Hospitalist

== ENCOUNTER 2021-11-19 22:32 | Inpatient (IN) ==
[2021-11-19] MEDS ORDERED: DILTIAZEM 50 MG/10 ML VIAL IV STA (22:59)
[2021-11-19 23:27] LABS: Basophils # 0.1 10*3/uL (0.0-0.2); Basophils % 0.5 % (0.0-0.8); Eosinophils # 0.7 10*3/uL (0.0-0.87); Eosinophils % 7.1 % (0.00-10.9); Hematocrit 30.9 VOL% (35.7-47.0); Hemoglobin 9.8 GM/DL (12.0-16.0); Immature Granulocytes % 0.4 %; Immature Granulocytes Absolute 0.04 #; Lymphocytes # 1.4 10*3/uL (1.4-4.0); Lymphocytes % 14.7 % (21.3-54.2); Mean Corpuscular HGB Conc 31.7 GM/DL (32-36); Mean Corpuscular Volume 92.5 FL (87-102); Monocytes % 8.2 % (1.7-12.7); Neutrophils % 69.1 % (38.7-73.9); Platelet Count 330 T/CUMM (130-400); Red Blood Count 3.34 MC/CUMM (3.8-5.5); Red Cell Distribution Width 13.2 % (9.3-17.3); White Blood Count 9.6 T/CUMM (4-12)
[2021-11-19 23:41] LABS: INR 1.2; PT Patient Result 13.1 SECS (10.5-12.0); Partial Thromboplastin Time 29.4 SECS (23.8-32.1)
[2021-11-19 23:49] LABS: Albumin 2.3 G/DL (3.4-5.0); Bilirubin,Total 0.4 MG/DL (0.20-1.00); Calcium 8.3 MG/DL (8.5-10.1); Osmolality,Calculated 280.3 MOS/KG (273-304); Potassium 4.2 MMOL/L (3.5-5.1); Total Protein 5.7 G/DL (6.4-8.2)
[2021-11-20] MEDS ORDERED: FUROSEMIDE 20 MG/2 ML VIAL IV STA (01:03)
[2021-11-20] MEDS ORDERED: FUROSEMIDE 40 MG/4 ML VIAL IV STA (01:09)
[2021-11-20] MEDS ORDERED: ACETAMINOPHEN 325 MG TABLET PO PRN (02:10)
[2021-11-20] MEDS ORDERED: ONDANSETRON 4 MG/2 ML VIAL IV PRN (02:10)
[2021-11-20] MEDS ORDERED: MAGNESIUM SULF RIDER 2 GM/50 ML PREMIX IV PRN (02:22)
[2021-11-20] MEDS ORDERED: MAGNESIUM SULF RIDER 4 GM/100 ML PREMIX IV PRN (02:22)
[2021-11-20] MEDS ORDERED: ENOXAPARIN 60 MG/0.6 ML SYRINGE SUBCUT SCH (04:00)
[2021-11-20 04:38] LABS: Ferritin 161.9 ng/mL (8-252)
[2021-11-20] MEDS ORDERED: ENOXAPARIN 40 MG/0.4 ML SYRINGE SUBCUT SCH (06:00)
[2021-11-20 08:05] LABS: Basophils % 0.4 % (0.0-0.8); Eosinophils # 0.7 10*3/uL (0.0-0.87); Eosinophils % 7.8 % (0.00-10.9); Hematocrit 32.8 VOL% (35.7-47.0); Hemoglobin 10.2 GM/DL (12.0-16.0); Immature Granulocytes % 0.3 %; Immature Granulocytes Absolute 0.03 #; Lymphocytes # 1.6 10*3/uL (1.4-4.0); Lymphocytes % 17.6 % (21.3-54.2); Mean Corpuscular HGB Conc 31.1 GM/DL (32-36); Mean Corpuscular Volume 92.1 FL (87-102); Monocytes % 9.8 % (1.7-12.7); Neutrophils % 64.1 % (38.7-73.9); Platelet Count 338 T/CUMM (130-400); Red Blood Count 3.56 MC/CUMM (3.8-5.5); Red Cell Distribution Width 13.1 % (9.3-17.3); White Blood Count 9.2 T/CUMM (4-12)
[2021-11-20 08:32] LABS: Albumin 2.2 G/DL (3.4-5.0); Bilirubin,Total 0.6 MG/DL (0.20-1.00); Calcium 8.6 MG/DL (8.5-10.1); Osmolality,Calculated 277.4 MOS/KG (273-304); Potassium 3.8 MMOL/L (3.5-5.1); Thyroid Stimulating Hormone 0.477 uIU/ml (0.358-3.74); Total Protein 6.4 G/DL (6.4-8.2)
[2021-11-20] MEDS ORDERED: ASPIRIN EC 81 MG TABLET PO SCH (09:30)
[2021-11-20] MEDS: FUROSEMIDE 40 MG/4 ML VIAL IV SCH ×2 (09:57→17:32)
[2021-11-20] MEDS: PANTOPRAZOLE 40 MG TABLET PO SCH (09:57)
[2021-11-20] MEDS: METOPROLOL SUCCINATE XL 25 MG TABLET PO SCH (10:01)
[2021-11-20] MEDS: methylPREDNISolone SOD SUC 40 MG/1 ML VIAL IV SCH ×2 (10:04→17:35)
[2021-11-20] MEDS: AZITHROMYCIN INJ 250 MG in SODIUM CHLORIDE 0.9% 250 ML IV SCH (11:57)
[2021-11-20] MEDS: MAGNESIUM CHLORIDE 64 MG TABLET PO SCH (20:49)
[2021-11-20] MEDS: APIXABAN 5 MG TABLET PO SCH (20:49)
[2021-11-20] MEDS ORDERED: APIXABAN 5 MG TABLET PO SCH (21:00)
[2021-11-21] MEDS: methylPREDNISolone SOD SUC 40 MG/1 ML VIAL IV SCH ×2 (01:46→11:27)
[2021-11-21] MEDS: PANTOPRAZOLE 40 MG TABLET PO SCH (08:30)
[2021-11-21] MEDS: MAGNESIUM CHLORIDE 64 MG TABLET PO SCH (08:31)
[2021-11-21] MEDS: METOPROLOL SUCCINATE XL 25 MG TABLET PO SCH (08:31)
[2021-11-21] MEDS ORDERED: OMEPRAZOLE ODT 20 MG TABLET PO SCH (09:00)
[2021-11-21] MEDS ORDERED: CHOLECALCIFEROL 1,000 UNIT TABLET PO SCH (09:00)
[2021-11-21] MEDS: FUROSEMIDE 40 MG/4 ML VIAL IV SCH (09:15)
[2021-11-21] MEDS: APIXABAN 5 MG TABLET PO SCH (10:18)
[2021-11-21] MEDS: AZITHROMYCIN INJ 250 MG in SODIUM CHLORIDE 0.9% 250 ML IV SCH (11:30)
[2021-11-21 11:59] VITALS: BP 131/54
[2021-11-21] MEDS ORDERED: APIXABAN 2.5 MG TABLET PO SCH (21:00)
== END 2021-11-21 16:18 | disposition swing bed (61) | DRG 291 ==
LOC: EDBD → EDUNIT# → N.ED 22:32 → N.EDINP 22:32 → SUATTDRO 11-20 02:10 → N.TELEN 11-20 03:01
PROVIDERS: ADMIT Internal Medicine; ATTEND Internal Medicine

== ENCOUNTER 2022-01-07 15:41 | Inpatient (IN) ==
[2022-01-07] MEDS ORDERED: FUROSEMIDE 40 MG/4 ML VIAL IV STA (16:32)
[2022-01-07 16:48] LABS: Basophils # 0.1 10*3/uL (0.0-0.2); Basophils % 0.6 % (0.0-0.8); Eosinophils # 0.5 10*3/uL (0.0-0.87); Eosinophils % 5.1 % (0.00-10.9); Hematocrit 30.8 VOL% (35.7-47.0); Hemoglobin 9.4 GM/DL (12.0-16.0); Immature Granulocytes % 0.8 %; Immature Granulocytes Absolute 0.08 #; Lymphocytes # 1.8 10*3/uL (1.4-4.0); Lymphocytes % 17.4 % (21.3-54.2); Mean Corpuscular HGB Conc 30.5 GM/DL (32-36); Mean Corpuscular Volume 91.9 FL (87-102); Mean Platelet Volume 9.6 FL (9.6-12.0); Neutrophils % 69.1 % (38.7-73.9); Platelet Count 354 T/CUMM (130-400); Red Blood Count 3.35 MC/CUMM (3.8-5.5); Red Cell Distribution Width 16.7 % (9.3-17.3); White Blood Count 10.4 T/CUMM (4-12)
[2022-01-07 17:04] LABS: Albumin 1.9 G/DL (3.4-5.0); Bilirubin,Total 0.5 MG/DL (0.20-1.00); Calcium 8.3 MG/DL (8.5-10.1); Osmolality,Calculated 280.4 MOS/KG (273-304); Potassium 3.2 MMOL/L (3.5-5.1); Total Protein 5.9 G/DL (6.4-8.2)
[2022-01-07] MEDS ORDERED: ACETAMINOPHEN 325 MG TABLET PO PRN (17:48)
[2022-01-07] MEDS ORDERED: GLUCAGON 1 MG VIAL IM PRN (17:48)
[2022-01-07] MEDS ORDERED: POTASSIUM CHLORIDE 20 MEQ TABLET PO STA (17:53)
[2022-01-07] MEDS ORDERED: ENOXAPARIN 30 MG/0.3 ML SYRINGE SUBCUT SCH (18:00)
[2022-01-07] MEDS ORDERED: DEXTROSE 10% 250 ML BAG IV PRN (18:03)
[2022-01-07] MEDS ORDERED: HEPARIN DRIP 25,000 UNITS/500 ML PREMIX IV SCH (18:30)
[2022-01-07] MEDS ORDERED: HEPARIN 5,000 UNIT/1 ML VIAL ONE (19:34)
[2022-01-07] MEDS: MAGNESIUM CHLORIDE 64 MG TABLET PO SCH (20:55)
[2022-01-07] MEDS: GABAPENTIN 100 MG CAPSULE PO SCH (20:55)
[2022-01-07] MEDS: VENLAFAXINE 37.5 MG TABLET PO SCH (21:30)
[2022-01-07] MEDS: METHENAMINE HIPPURATE 1 GM TABLET PO SCH (21:41)
[2022-01-08 01:27] LABS: Basophils # 0.1 10*3/uL (0.0-0.2); Basophils % 0.5 % (0.0-0.8); Eosinophils # 0.7 10*3/uL (0.0-0.87); Eosinophils % 5.8 % (0.00-10.9); Hematocrit 31.6 VOL% (35.7-47.0); Hemoglobin 9.8 GM/DL (12.0-16.0); Immature Granulocytes % 0.7 %; Immature Granulocytes Absolute 0.08 #; Lymphocytes # 1.7 10*3/uL (1.4-4.0); Lymphocytes % 14.8 % (21.3-54.2); Mean Platelet Volume 9.1 FL (9.6-12.0); Monocytes % 6.4 % (1.7-12.7); Neutrophils % 71.8 % (38.7-73.9); Platelet Count 337 T/CUMM (130-400); Red Blood Count 3.51 MC/CUMM (3.8-5.5); Red Cell Distribution Width 16.7 % (9.3-17.3); White Blood Count 11.2 T/CUMM (4-12)
[2022-01-08 01:54] LABS: Albumin 1.8 G/DL (3.4-5.0); Bilirubin,Total 0.7 MG/DL (0.20-1.00); Calcium 8.4 MG/DL (8.5-10.1); Osmolality,Calculated 275.8 MOS/KG (273-304); Potassium 2.8 MMOL/L (3.5-5.1); Total Protein 5.9 G/DL (6.4-8.2)
[2022-01-08] MEDS: CHOLECALCIFEROL 1,000 UNIT TABLET PO SCH (08:44)
[2022-01-08] MEDS: MAGNESIUM CHLORIDE 64 MG TABLET PO SCH ×2 (08:45→21:59)
[2022-01-08] MEDS: PANTOPRAZOLE 40 MG TABLET PO SCH (08:45)
[2022-01-08] MEDS: METOPROLOL SUCCINATE XL 25 MG TABLET PO SCH (08:45)
[2022-01-08] MEDS: METHENAMINE HIPPURATE 1 GM TABLET PO SCH ×2 (08:45→21:59)
[2022-01-08] MEDS: FUROSEMIDE 40 MG/4 ML VIAL IV SCH ×2 (08:46→15:19)
[2022-01-08 08:48] LABS: % Iron Saturation 7.8 % (18-50)
[2022-01-08] MEDS: POTASSIUM CHLORIDE 20 MEQ TABLET PO PRN ×4 (10:16→16:51)
[2022-01-08] MEDS: ONDANSETRON 4 MG/2 ML VIAL IV PRN (10:23)
[2022-01-08] MEDS: SPIRONOLACTONE 25 MG TABLET PO SCH (11:48)
[2022-01-08] MEDS: POLYETHYLENE GLYCOL POWDER 17 GM PACK PO SCH (11:48)
[2022-01-08] MEDS ORDERED: MAGNESIUM SULF RIDER 2 GM/50 ML PREMIX IV ONE (15:00)
[2022-01-08] MEDS: traMADol 50 MG TABLET PO PRN ×2 (15:21→22:08)
[2022-01-08] MEDS ORDERED: APIXABAN 5 MG TABLET PO ONE (16:31)
[2022-01-08] MEDS ORDERED: APIXABAN 2.5 MG TABLET PO SCH (21:00)
[2022-01-08] MEDS: GABAPENTIN 100 MG CAPSULE PO SCH (21:59)
[2022-01-08] MEDS: VENLAFAXINE 37.5 MG TABLET PO SCH (22:00)
[2022-01-08] MEDS ORDERED: METOPROLOL TARTRATE 5 MG/5 ML VIAL IV ONE (22:58)
[2022-01-09 05:47] LABS: Basophils # 0.1 10*3/uL (0.0-0.2); Basophils % 0.6 % (0.0-0.8); Eosinophils # 0.6 10*3/uL (0.0-0.87); Eosinophils % 4.8 % (0.00-10.9); Hematocrit 31.2 VOL% (35.7-47.0); Hemoglobin 9.4 GM/DL (12.0-16.0); Immature Granulocytes % 0.5 %; Immature Granulocytes Absolute 0.06 #; Lymphocytes % 17.4 % (21.3-54.2); Mean Corpuscular HGB Conc 30.1 GM/DL (32-36); Mean Platelet Volume 9.4 FL (9.6-12.0); Monocytes % 8.9 % (1.7-12.7); Neutrophils % 67.8 % (38.7-73.9); Platelet Count 393 T/CUMM (130-400); Red Blood Count 3.39 MC/CUMM (3.8-5.5); White Blood Count 11.6 T/CUMM (4-12)
[2022-01-09 06:14] LABS: Calcium 8.7 MG/DL (8.5-10.1); Osmolality,Calculated 270.1 MOS/KG (273-304); Potassium 5.1 MMOL/L (3.5-5.1)
[2022-01-09] MEDS: POLYETHYLENE GLYCOL POWDER 17 GM PACK PO SCH (09:48)
[2022-01-09] MEDS: CHOLECALCIFEROL 1,000 UNIT TABLET PO SCH (09:49)
[2022-01-09] MEDS: MAGNESIUM CHLORIDE 64 MG TABLET PO SCH ×2 (09:49→22:37)
[2022-01-09] MEDS: METHENAMINE HIPPURATE 1 GM TABLET PO SCH ×2 (09:50→22:36)
[2022-01-09] MEDS: ASPIRIN EC 81 MG TABLET PO SCH (09:50)
[2022-01-09] MEDS: FERROUS SULFATE 325 MG TABLET PO SCH ×2 (09:50→17:01)
[2022-01-09] MEDS: SPIRONOLACTONE 25 MG TABLET PO SCH (09:50)
[2022-01-09] MEDS: traMADol 50 MG TABLET PO PRN ×2 (09:50→22:35)
[2022-01-09] MEDS: DOCUSATE SODIUM 100 MG CAPSULE PO SCH ×2 (09:50→22:35)
[2022-01-09] MEDS: PANTOPRAZOLE 40 MG TABLET PO SCH (09:50)
[2022-01-09] MEDS: METOPROLOL SUCCINATE XL 25 MG TABLET PO SCH (09:50)
[2022-01-09] MEDS: FUROSEMIDE 40 MG/4 ML VIAL IV SCH ×2 (10:00→17:05)
[2022-01-09] MEDS: metOLazone 5 MG TABLET PO SCH (18:16)
[2022-01-09] MEDS: GABAPENTIN 100 MG CAPSULE PO SCH (22:36)
[2022-01-09] MEDS: VENLAFAXINE 37.5 MG TABLET PO SCH (22:37)
[2022-01-10 06:09] LABS: Basophils # 0.1 10*3/uL (0.0-0.2); Basophils % 0.4 % (0.0-0.8); Eosinophils # 0.5 10*3/uL (0.0-0.87); Eosinophils % 3.7 % (0.00-10.9); Hematocrit 30.3 VOL% (35.7-47.0); Hemoglobin 9.1 GM/DL (12.0-16.0); Immature Granulocytes % 0.9 %; Immature Granulocytes Absolute 0.11 #; Lymphocytes # 1.6 10*3/uL (1.4-4.0); Lymphocytes % 12.6 % (21.3-54.2); Mean Corpuscular Volume 91.8 FL (87-102); Mean Platelet Volume 10.1 FL (9.6-12.0); Monocytes % 7.3 % (1.7-12.7); NRBC # 0.02 10*3/uL; Neutrophils % 75.1 % (38.7-73.9); Platelet Count 280 T/CUMM (130-400); Red Cell Distribution Width 16.8 % (9.3-17.3); White Blood Count 12.7 T/CUMM (4-12)
[2022-01-10 06:25] LABS: Calcium 8.8 MG/DL (8.5-10.1); Osmolality,Calculated 272.1 MOS/KG (273-304); Potassium 3.9 MMOL/L (3.5-5.1)
[2022-01-10] MEDS: CHOLECALCIFEROL 1,000 UNIT TABLET PO SCH (09:12)
[2022-01-10] MEDS: ASPIRIN EC 81 MG TABLET PO SCH (09:12)
[2022-01-10] MEDS: FUROSEMIDE 40 MG/4 ML VIAL IV SCH ×2 (09:12→15:14)
[2022-01-10] MEDS: metOLazone 5 MG TABLET PO SCH (09:16)
[2022-01-10] MEDS: DOCUSATE SODIUM 100 MG CAPSULE PO SCH ×2 (09:16→20:05)
[2022-01-10] MEDS: METOPROLOL SUCCINATE XL 25 MG TABLET PO SCH (09:16)
[2022-01-10] MEDS: SPIRONOLACTONE 25 MG TABLET PO SCH (09:17)
[2022-01-10] MEDS: MAGNESIUM CHLORIDE 64 MG TABLET PO SCH ×3 (09:17→23:45)
[2022-01-10] MEDS: PANTOPRAZOLE 40 MG TABLET PO SCH (09:17)
[2022-01-10] MEDS: METHENAMINE HIPPURATE 1 GM TABLET PO SCH ×2 (09:17→20:06)
[2022-01-10] MEDS: POLYETHYLENE GLYCOL POWDER 17 GM PACK PO SCH (09:27)
[2022-01-10] MEDS: FERROUS SULFATE 325 MG TABLET PO SCH ×2 (09:28→17:28)
[2022-01-10] MEDS: COLLAGENASE OINT 30 GM TUBE TOP SCH (18:10)
[2022-01-10] MEDS: GABAPENTIN 100 MG CAPSULE PO SCH (20:05)
[2022-01-10] MEDS: traMADol 50 MG TABLET PO PRN (21:05)
[2022-01-10] MEDS: VENLAFAXINE 37.5 MG TABLET PO SCH (21:05)
[2022-01-11 05:33] LABS: Basophils % 0.3 % (0.0-0.8); Eosinophils # 0.9 10*3/uL (0.0-0.87); Eosinophils % 6.7 % (0.00-10.9); Hematocrit 33.6 VOL% (35.7-47.0); Hemoglobin 10.3 GM/DL (12.0-16.0); Immature Granulocytes % 0.6 %; Immature Granulocytes Absolute 0.08 #; Lymphocytes # 1.9 10*3/uL (1.4-4.0); Lymphocytes % 14.2 % (21.3-54.2); Mean Corpuscular HGB Conc 30.7 GM/DL (32-36); Mean Corpuscular Volume 89.1 FL (87-102); Mean Platelet Volume 9.3 FL (9.6-12.0); Monocytes % 7.2 % (1.7-12.7); NRBC # 0.02 10*3/uL; Platelet Count 354 T/CUMM (130-400); Red Blood Count 3.77 MC/CUMM (3.8-5.5); Red Cell Distribution Width 16.6 % (9.3-17.3); White Blood Count 13.6 T/CUMM (4-12)
[2022-01-11 05:47] LABS: Osmolality,Calculated 263.7 MOS/KG (273-304)
[2022-01-11] MEDS: POLYETHYLENE GLYCOL POWDER 17 GM PACK PO SCH (09:13)
[2022-01-11] MEDS: DOCUSATE SODIUM 100 MG CAPSULE PO SCH ×2 (09:13→20:37)
[2022-01-11] MEDS: PANTOPRAZOLE 40 MG TABLET PO SCH (09:14)
[2022-01-11] MEDS: FERROUS SULFATE 325 MG TABLET PO SCH ×2 (09:14→17:35)
[2022-01-11] MEDS: ASPIRIN EC 81 MG TABLET PO SCH (09:14)
[2022-01-11] MEDS: metOLazone 5 MG TABLET PO SCH (09:14)
[2022-01-11] MEDS: POTASSIUM CHLORIDE 20 MEQ TABLET PO PRN ×3 (09:14→17:38)
[2022-01-11] MEDS: METHENAMINE HIPPURATE 1 GM TABLET PO SCH ×2 (09:14→22:02)
[2022-01-11] MEDS: CHOLECALCIFEROL 1,000 UNIT TABLET PO SCH (09:14)
[2022-01-11] MEDS: MAGNESIUM CHLORIDE 64 MG TABLET PO SCH ×2 (09:14→22:02)
[2022-01-11] MEDS: SPIRONOLACTONE 25 MG TABLET PO SCH (09:14)
[2022-01-11] MEDS: METOPROLOL SUCCINATE XL 25 MG TABLET PO SCH (09:14)
[2022-01-11] MEDS: FUROSEMIDE 40 MG/4 ML VIAL IV SCH (09:23)
[2022-01-11] MEDS: COLLAGENASE OINT 30 GM TUBE TOP SCH (09:24)
[2022-01-11] MEDS: traMADol 50 MG TABLET PO PRN ×2 (10:03→20:34)
[2022-01-11] MEDS ORDERED: MAGNESIUM SULF RIDER 2 GM/50 ML PREMIX IV ONE (14:04)
[2022-01-11] MEDS: GABAPENTIN 100 MG CAPSULE PO SCH (20:35)
[2022-01-11] MEDS: VENLAFAXINE 37.5 MG TABLET PO SCH (20:36)
[2022-01-11] MEDS ORDERED: POTASSIUM BICARB EFFERVESCENT 20 MEQ TAB.EFF PO PRN (21:00)
[2022-01-12 06:42] LABS: Basophils % 0.2 % (0.0-0.8); Eosinophils # 0.3 10*3/uL (0.0-0.87); Eosinophils % 2.3 % (0.00-10.9); Hematocrit 33.8 VOL% (35.7-47.0); Hemoglobin 10.6 GM/DL (12.0-16.0); Immature Granulocytes % 0.7 %; Immature Granulocytes Absolute 0.09 #; Lymphocytes # 1.6 10*3/uL (1.4-4.0); Lymphocytes % 12.2 % (21.3-54.2); Mean Corpuscular HGB Conc 31.4 GM/DL (32-36); Mean Corpuscular Volume 87.1 FL (87-102); Mean Platelet Volume 10.3 FL (9.6-12.0); Monocytes % 7.7 % (1.7-12.7); Neutrophils % 76.9 % (38.7-73.9); Platelet Count 318 T/CUMM (130-400); Red Blood Count 3.88 MC/CUMM (3.8-5.5); Red Cell Distribution Width 16.3 % (9.3-17.3); White Blood Count 13.1 T/CUMM (4-12)
[2022-01-12 07:04] LABS: Calcium 9.2 MG/DL (8.5-10.1); Osmolality,Calculated 261.9 MOS/KG (273-304); Potassium 3.7 MMOL/L (3.5-5.1)
[2022-01-12] MEDS: metOLazone 5 MG TABLET PO SCH ×2 (09:09→13:41)
[2022-01-12] MEDS: METHENAMINE HIPPURATE 1 GM TABLET PO SCH ×3 (09:09→22:50)
[2022-01-12] MEDS: MAGNESIUM CHLORIDE 64 MG TABLET PO SCH ×3 (09:09→22:50)
[2022-01-12] MEDS: ASPIRIN EC 81 MG TABLET PO SCH (09:09)
[2022-01-12] MEDS: FERROUS SULFATE 325 MG TABLET PO SCH ×3 (09:09→16:25)
[2022-01-12] MEDS: PANTOPRAZOLE 40 MG TABLET PO SCH ×2 (09:09→12:51)
[2022-01-12] MEDS: CHOLECALCIFEROL 1,000 UNIT TABLET PO SCH ×2 (09:09→12:52)
[2022-01-12] MEDS: METOPROLOL SUCCINATE XL 25 MG TABLET PO SCH (09:09)
[2022-01-12] MEDS: SPIRONOLACTONE 25 MG TABLET PO SCH (09:09)
[2022-01-12] MEDS: FUROSEMIDE 40 MG TABLET PO SCH (09:09)
[2022-01-12] MEDS: COLLAGENASE OINT 30 GM TUBE TOP SCH (12:35)
[2022-01-12] MEDS: POLYETHYLENE GLYCOL POWDER 17 GM PACK PO SCH (12:50)
[2022-01-12] MEDS: DOCUSATE SODIUM 100 MG CAPSULE PO SCH ×2 (12:50→22:58)
[2022-01-12] MEDS: traMADol 50 MG TABLET PO PRN (16:25)
[2022-01-12] MEDS: VENLAFAXINE 37.5 MG TABLET PO SCH (22:50)
[2022-01-12] MEDS: GABAPENTIN 100 MG CAPSULE PO SCH (22:50)
[2022-01-13] MEDS: traMADol 50 MG TABLET PO PRN (05:06)
[2022-01-13 05:58] LABS: Basophils # 0.1 10*3/uL (0.0-0.2); Basophils % 0.3 % (0.0-0.8); Eosinophils # 0.6 10*3/uL (0.0-0.87); Eosinophils % 3.9 % (0.00-10.9); Hematocrit 38.3 VOL% (35.7-47.0); Hemoglobin 11.9 GM/DL (12.0-16.0); Immature Granulocytes % 0.8 %; Immature Granulocytes Absolute 0.11 #; Lymphocytes # 2.7 10*3/uL (1.4-4.0); Lymphocytes % 18.5 % (21.3-54.2); Mean Corpuscular HGB Conc 31.1 GM/DL (32-36); Mean Corpuscular Volume 87.6 FL (87-102); Mean Platelet Volume 9.4 FL (9.6-12.0); Monocytes % 7.5 % (1.7-12.7); Platelet Count 445 T/CUMM (130-400); Red Blood Count 4.37 MC/CUMM (3.8-5.5); Red Cell Distribution Width 16.4 % (9.3-17.3); White Blood Count 14.3 T/CUMM (4-12)
[2022-01-13 06:16] LABS: Calcium 9.2 MG/DL (8.5-10.1); Osmolality,Calculated 262.9 MOS/KG (273-304); Potassium 3.2 MMOL/L (3.5-5.1)
[2022-01-13] MEDS ORDERED: POTASSIUM CHLORIDE 20 MEQ TABLET PO ONE (08:00)
[2022-01-13] MEDS: FERROUS SULFATE 325 MG TABLET PO SCH ×2 (11:58→18:03)
[2022-01-13] MEDS: METHENAMINE HIPPURATE 1 GM TABLET PO SCH ×2 (11:58→21:52)
[2022-01-13] MEDS: DOCUSATE SODIUM 100 MG CAPSULE PO SCH ×2 (11:58→22:08)
[2022-01-13] MEDS: COLLAGENASE OINT 30 GM TUBE TOP SCH (11:59)
[2022-01-13] MEDS: METOPROLOL SUCCINATE XL 25 MG TABLET PO SCH (11:59)
[2022-01-13] MEDS: POLYETHYLENE GLYCOL POWDER 17 GM PACK PO SCH (11:59)
[2022-01-13] MEDS: CHOLECALCIFEROL 1,000 UNIT TABLET PO SCH (11:59)
[2022-01-13] MEDS: PANTOPRAZOLE 40 MG TABLET PO SCH (11:59)
[2022-01-13] MEDS: MAGNESIUM CHLORIDE 64 MG TABLET PO SCH ×2 (11:59→21:52)
[2022-01-13] MEDS: FUROSEMIDE 40 MG TABLET PO SCH (14:44)
[2022-01-13] MEDS: SPIRONOLACTONE 25 MG TABLET PO SCH (14:44)
[2022-01-13] MEDS: ASPIRIN EC 81 MG TABLET PO SCH (14:44)
[2022-01-13] MEDS: VENLAFAXINE 37.5 MG TABLET PO SCH (21:52)
[2022-01-13] MEDS: GABAPENTIN 100 MG CAPSULE PO SCH (21:52)
[2022-01-14] MEDS: FERROUS SULFATE 325 MG TABLET PO SCH ×2 (08:31→16:51)
[2022-01-14] MEDS: PANTOPRAZOLE 40 MG TABLET PO SCH (08:31)
[2022-01-14] MEDS: FUROSEMIDE 40 MG TABLET PO SCH (08:31)
[2022-01-14] MEDS: METHENAMINE HIPPURATE 1 GM TABLET PO SCH ×3 (08:31→21:44)
[2022-01-14] MEDS: SPIRONOLACTONE 25 MG TABLET PO SCH (08:31)
[2022-01-14] MEDS: ASPIRIN EC 81 MG TABLET PO SCH (08:31)
[2022-01-14] MEDS: METOPROLOL SUCCINATE XL 25 MG TABLET PO SCH (08:31)
[2022-01-14] MEDS: POLYETHYLENE GLYCOL POWDER 17 GM PACK PO SCH (08:32)
[2022-01-14] MEDS: MAGNESIUM CHLORIDE 64 MG TABLET PO SCH ×3 (08:32→21:44)
[2022-01-14] MEDS: DOCUSATE SODIUM 100 MG CAPSULE PO SCH ×3 (08:32→21:44)
[2022-01-14] MEDS: CHOLECALCIFEROL 1,000 UNIT TABLET PO SCH (08:32)
[2022-01-14 09:12] LABS: Basophils # 0.1 10*3/uL (0.0-0.2); Basophils % 0.5 % (0.0-0.8); Eosinophils # 0.3 10*3/uL (0.0-0.87); Eosinophils % 1.9 % (0.00-10.9); Hematocrit 40.9 VOL% (35.7-47.0); Hemoglobin 12.4 GM/DL (12.0-16.0); Immature Granulocytes % 0.9 %; Immature Granulocytes Absolute 0.12 #; Lymphocytes # 2.1 10*3/uL (1.4-4.0); Lymphocytes % 15.7 % (21.3-54.2); Mean Corpuscular HGB Conc 30.3 GM/DL (32-36); Mean Corpuscular Volume 89.9 FL (87-102); Mean Platelet Volume 9.2 FL (9.6-12.0); Monocytes % 9.6 % (1.7-12.7); Neutrophils % 71.4 % (38.7-73.9); Platelet Count 538 T/CUMM (130-400); Red Blood Count 4.55 MC/CUMM (3.8-5.5); Red Cell Distribution Width 16.6 % (9.3-17.3); White Blood Count 13.1 T/CUMM (4-12)
[2022-01-14] MEDS: ONDANSETRON 4 MG/2 ML VIAL IV PRN (09:30)
[2022-01-14 09:33] LABS: Calcium 9.4 MG/DL (8.5-10.1); Osmolality,Calculated 272.7 MOS/KG (273-304)
[2022-01-14] MEDS: COLLAGENASE OINT 30 GM TUBE TOP SCH (10:56)
[2022-01-14] MEDS: VENLAFAXINE 37.5 MG TABLET PO SCH ×2 (21:43→21:44)
[2022-01-14] MEDS: GABAPENTIN 100 MG CAPSULE PO SCH (21:44)
[2022-01-15 05:36] LABS: Basophils # 0.1 10*3/uL (0.0-0.2); Basophils % 0.3 % (0.0-0.8); Eosinophils # 0.1 10*3/uL (0.0-0.87); Eosinophils % 0.2 % (0.00-10.9); Hematocrit 42.8 VOL% (35.7-47.0); Hemoglobin 13.1 GM/DL (12.0-16.0); Immature Granulocytes % 0.8 %; Immature Granulocytes Absolute 0.17 #; Lymphocytes # 1.7 10*3/uL (1.4-4.0); Lymphocytes % 8.3 % (21.3-54.2); Mean Corpuscular HGB Conc 30.6 GM/DL (32-36); Mean Corpuscular Volume 88.6 FL (87-102); Mean Platelet Volume 9.3 FL (9.6-12.0); Neutrophils % 84.4 % (38.7-73.9); Platelet Count 605 T/CUMM (130-400); Red Blood Count 4.83 MC/CUMM (3.8-5.5); Red Cell Distribution Width 16.9 % (9.3-17.3); White Blood Count 20.4 T/CUMM (4-12)
[2022-01-15 05:56] LABS: Calcium 10.2 MG/DL (8.5-10.1); Osmolality,Calculated 276.8 MOS/KG (273-304); Potassium 3.1 MMOL/L (3.5-5.1)
[2022-01-15 06:04] LABS: Eosinophils 1 % (0-10); Hypochromia Slight; Lymphocytes 9 % (20-55); Microcytosis Slight; Platelet Estimate Adequate; Segmented Neutrophils 85 % (50-85); Total Cells Counted 100
[2022-01-15 08:45] VITALS: BP 134/70
[2022-01-15] MEDS ORDERED: predniSONE 20 MG TABLET PO SCH (09:00)
[2022-01-15] MEDS ORDERED: POTASSIUM BICARB EFFERVESCENT 20 MEQ TAB.EFF PO SCH (09:00)
[2022-01-15] MEDS: DOCUSATE SODIUM 100 MG CAPSULE PO SCH (09:16)
[2022-01-15] MEDS: METHENAMINE HIPPURATE 1 GM TABLET PO SCH (09:16)
[2022-01-15] MEDS: PANTOPRAZOLE 40 MG TABLET PO SCH (09:16)
[2022-01-15] MEDS: FUROSEMIDE 40 MG TABLET PO SCH (09:16)
[2022-01-15] MEDS: SPIRONOLACTONE 25 MG TABLET PO SCH (09:16)
[2022-01-15] MEDS: METOPROLOL SUCCINATE XL 25 MG TABLET PO SCH (09:16)
[2022-01-15] MEDS: traMADol 50 MG TABLET PO PRN (09:16)
[2022-01-15] MEDS: FERROUS SULFATE 325 MG TABLET PO SCH (09:16)
[2022-01-15] MEDS: MAGNESIUM CHLORIDE 64 MG TABLET PO SCH (09:20)
[2022-01-15] MEDS: ASPIRIN EC 81 MG TABLET PO SCH (09:24)
[2022-01-15] MEDS: COLLAGENASE OINT 30 GM TUBE TOP SCH (09:24)
[2022-01-15] MEDS: CHOLECALCIFEROL 1,000 UNIT TABLET PO SCH (09:25)
[2022-01-15] MEDS: POLYETHYLENE GLYCOL POWDER 17 GM PACK PO SCH (09:25)
[2022-01-15] MEDS ORDERED: ACETAMINOPHEN 650 MG SUPP RECTAL PRN (09:46)
[2022-01-15] MEDS ORDERED: fentaNYL 12 MCG/HR PATCH TRANSDERM SCH (10:00)
[2022-01-15] MEDS: LORazepam 2 MG/1 ML VIAL IV PRN ×2 (11:19→17:23)
== END 2022-01-15 17:53 | disposition expired | DRG 291 ==
LOC: EDBD → EDUNIT# → N.3E 15:41 → N.ED 15:41 → N.3E 23:29 → SUATTDRO 01-08 09:38
PROVIDERS: ADMIT Internal Medicine; ATTEND Hospitalist